=== PATIENT | female | born 1985 | race Caucasian/White ===

== ENCOUNTER 2020-05-30 13:44 | Outpatient (CLI) | payer BC, SELFPAY ==
--- NOTE | 2020-05-30 13:57 | XR_ITS ---
WS: [id number] Exam: XR ankle RT min 3V* [id number] Date/Time of Exam: 05/30/2020 1:57 PM Reason For Exam: CLOSED FX DISLOCATION @ R ANKLE JOINT There is plate and screw fixation along the lateral margin of the lower fibula. No acute fracture is visualized. 2 screws in the plate extend transversely into the lower tibia. The ankle mortise is inta ct. There is mild DJD of the ankle mortise. Normal soft tissues. XR/XR ankle RT min 3V* [id number] IMPRESSION: 1. Internal orthopedic fixation of the lower fibula and tibia. 2. No acute fracture or dislocation.
== END 2020-05-30 13:45 | disposition home or self-care (01) ==
LOC: RADWPI 13:52 → RAD 13:54
PROVIDERS: PCP Family Medicine; Visit Provider Physician Assistant
DX: S82.891A Other fracture of right lower leg, initial encounter for closed fracture (principal); X58.XXXA Exposure to other specified factors, initial encounter
CPT/HCPCS: 73610

== ENCOUNTER → 2021-05-04 14:58 | Outpatient (BNVA) | payer BC, SELFPAY | PROVIDERS: PCP Family Medicine; Referring Provider Nurse Practitioner; Visit Provider Nurse Practitioner Women's Health | DX: N91.5 Oligomenorrhea, unspecified (principal); F32.81 Premenstrual dysphoric disorder | CPT/HCPCS: 84146; 84443; 84702 ==

== ENCOUNTER 2021-08-03 12:47 | Outpatient (CLI) | payer BC, SELFPAY ==
--- NOTE | 2021-08-03 13:00 | US_ITS ---
WS: [id number] TRANSVAGINAL PELVIC ULTRASOUND HISTORY: N91.5 - Oligomenorrhea, unspecified COMPARISON: 05/11/2011 Uterus: 9.4 cm x 5.3 cm x 4.0 cm. Mildly enlarged uterus. Uterus is slightly retroverted. No discrete mass identified. Endometrium: 0.9 cm. Due to retroflexion of the uterus the entire endometrium is not well visualized. The endometrium which is visualized is normal. Neither ovary identified. No adnexal masses. No free fluid. US/US transvaginal [id number] IMPRESSION: 1. Technically difficult pelvic ultrasound due to body habitus and position of the uterus. 2. Retroflexed uterus. 3. Neither ovary identified.
== END 2021-08-03 12:48 | disposition home or self-care (01) ==
PROVIDERS: PCP Family Medicine; Visit Provider Nurse Practitioner Women's Health
DX: N91.5 Oligomenorrhea, unspecified (principal)
CPT/HCPCS: 76830

== ENCOUNTER → 2021-08-10 08:26 | Outpatient (BNVA) | payer BC, SELFPAY | PROVIDERS: PCP Family Medicine; Visit Provider Nurse Practitioner Women's Health | DX: Z01.419 Encounter for gynecological examination (general) (routine) without abnormal findings (principal); E28.2 Polycystic ovarian syndrome | CPT/HCPCS: 87624 ==

== ENCOUNTER → 2021-11-23 15:45 | Outpatient (BNVA) | payer BC, SELFPAY | PROVIDERS: PCP Family Medicine; Visit Provider Nurse Practitioner Psychiatric/Mental Health | DX: Z03.89 Encounter for observation for other suspected diseases and conditions ruled out (principal) | CPT/HCPCS: 80053; 84439; 84481 ==

== ENCOUNTER 2023-10-30 14:33 | Inpatient (IN) | payer SELFPAY ==
--- NOTE | 2023-10-30 14:50 | W.ED.PSYCHS ---
HPI - Psych General: Chief Complaint: Psychiatric Symptoms Stated Complaint: mhe Time Seen by Provider: 10/30/23 14:36 Source: patient and police History of Present Illness: 38-year-old female is here with police with suicidal ideations. She has a history of PTSD and depression and borderline personality disorder. She tells me that she cannot pay her bills and she is severely depressed and has been having thoughts of killing yourself every day. Associated symptoms: Reports depression and suicidal ideation Review of Systems Const: Denies: fever(s), chills, body aches or change in appetite ENMT: Denies: throat pain or dental pain Card: Denies: chest pain Resp: Denies: dyspnea GI: Denies: abdominal pain, nausea, vomiting or diarrhea Musc: Denies: neck pain or back pain Skin/Breast: Denies: rash Neuro: Denies: headache(s) Psych: Reports: depression and suicidal ideation [facility] ED PFSH: Medical History Dizziness and giddiness No pertinent past medical history neghx:htn,dm,thyroid,dvt/pe PCP: Wen PMDD (premenstrual dysphoric disorder) Psychiatric care Surgical History H/O tubal ligation History of section 2003 2008 2013-- tubal liagation at the same time H/O dilation and curettage (~2009) early SAB Family History Mother Diabetes Hypertension Denies family history of Colon cancer Ovarian cancer Heart disease Hypercholesteremia Breast cancer Uterine cancer Thyroid disease Stroke Physical Exam Const: COMMON NORMALS: no acute distress, patient oriented x3 and healthy appearing HENMT: COMMON NORMALS: normocephalic and atraumatic HEAD & SCALP: normocephalic and atraumatic Neck/C-Spine: COMMON NORMALS: full ROM and supple Chest: COMMONS NORMALS: normal inspection of the chest Resp: COMMON NORMALS: normal respiratory effort Cardio: COMMON NORMALS: regular rate, regular rhythm and No murmurs present (Cardio) RATE: regular rate RHYTHM: regular rhythm Extremity: COMMON NORMALS: normal to inspection and full ROM Neuro: COMMON NORMALS: patient oriented x3, moves all extremities and no focal motor deficits Psych: COMMON NORMALS: mental status grossly normal, Normal thought process present and cooperative MOOD & AFFECT: Yes depressed mood THOUGHT PROCESS: Normal thought process present THOUGHT CONTENT: Yes Suicidality present Skin: COMMON NORMALS: no rashes or lesions noted and no wounds GENERAL SKIN EXAM: no rashes or lesions noted Course Vital Signs: Vital signs: Vital Signs Temperature 98.2 F 10/30/23 14:52 Pulse Rate 71 10/30/23 16:07 Blood Pressure 141/84 10/30/23 16:07 Pulse Oximetry 99 10/30/23 16:07 Oxygen Delivery Me thod Room Air 10/30/23 14:52 MDM - Psych Medical Decision Making Patient presents for suicidal ideation patient's medically cleared I spoke to the psychiatrist and will admit on a 96-hour hold Medical Records I reviewed the patient's medical records. Lab Data I reviewed the patient's lab results. 10/30/23 15:16 10/30/23 15:16 Laboratory Results WBC 10.04 10^3/uL (3.29-11.43) 10/30/23 15:16 RBC 4.52 10^6/uL (3.85-5.65) 10/30/23 15:16 Hgb 11.50 g/dL (11.27-16.99) 10/30/23 15:16 Hct 37.7 % (36-47) 10/30/23 15:16 MCV 83.4 fl (85-98) L 10/30/23 15:16 MCH 25.4 pg (27-33) L 10/30/23 15:16 MCHC 30.5 g/dL (30-55) 10/30/23 15:16 RDW 15.0 % (12.1-15.1) 10/30/23 15:16 Plt Count 533 10^3/cmm (157-399) H 10/30/23 15:16 MPV 8.6 fL (7.4-10.4) 10/30/23 15:16 Neut % (Auto) 67.1 % 10/30/23 15:16 Lymph % (Auto) 21.9 % 10/30/23 15:16 [place] % (Auto) 4.9 % 10/30/23 15:16 Eos % (Auto) 4.8 % 10/30/23 15:16 Baso % (Auto) 0.9 % 10/30/23 15:16 Neut # (Auto) 6.74 10^3/uL (1.8-7.7) 10/30/23 15:16 Lymph # (Auto) 2.2 10^3/uL (0.8-4.8) 10/30/23 15:16 [place] # (Auto) 0.5 10^3/uL (0.2-0.9) 10/30/23 15:16 Eos # (Auto) 0.5 10^3/uL (0.0-0.8) 10/30/23 15:16 Baso # (Auto) 0.1 10^3/uL (0.0-0.1) 10/30/23 15:16 Nucleated RBC % (auto) 0 % 10/30/23 15:16 Nucleated RBCs # 0.0 /100WBC 10/30/23 15:16 Sodium 142 mmol/L (136-145) 10/30/23 15:16 Potassium 3.9 mmol/L (3.5-5.1) 10/30/23 15:16 Chloride 109 mmol/L (98-107) H 10/30/23 15:16 Carbon Dioxide 22 mmol/L (22-29) 10/30/23 15:16 Anion Gap 14.9 (5-19) 10/30/23 15:16 BUN 9 mg/dL (6-20) 10/30/23 15:16 Creatinine 0.8 mg/dL (0.5-0.9) 10/30/23 15:16 GFR Calculation 79.4 mL/min (90-130) L 10/30/23 15:16 Glucose 149 mg/dL (65-115) H 10/30/23 15:16 Calculated Osmolality 295 mOsm/kg (285-295) 10/30/23 15:16 Calcium 8.8 mg/dL (8.5-10.5) 10/30/23 15:16 Total Bilirubin 0.3 mg/dL (0.15-1.2) 10/30/23 15:16 AST 10 U/L (0-32) 10/30/23 15:16 ALT 12 U/L (0-33) 10/30/23 15:16 Alkaline Phosphatase 71 U/L (35-105) 10/30/23 15:16 Total Protein 7.8 g/dL (6.6-8.7) 10/30/23 15:16 Albumin 4.5 g/dL (3.5-5.2) 10/30/23 15:16 Globulin 3.3 g/dL (1.3-4.6) 10/30/23 15:16 Salicylates 0.9 mg/dL (3-10) L 10/30/23 15:16 Acetaminophen < 5.0 ug/mL (10-30) L 10/30/23 15:16 Ethyl Alcohol < 10 mg/dL (0-10) 10/30/23 15:16 No radiology studies performed this visit Discharge Plan Discharge Patient Disposition: Admitted As Inpatient Admit Provider: Jaya Rousseau Clinical Impression: Suicidal ideation Condition: Stable Coding Level of Care Code ED Sand Mixer Operator for Kashif Tobar
[2023-10-30 14:52] VITALS: BP 141/84; PULSE 71; TEMP 36.8; O2SAT 99
[2023-10-30 15:48] LABS: Basophils # 0.1 10^3/uL (0.0-0.1); Basophils % 0.9 %; Eosinophils # 0.5 10^3/uL (0.0-0.8); Eosinophils % 4.8 %; Hematocrit 37.7 % (36-47); Lymphocytes # 2.2 10^3/uL (0.8-4.8); Lymphocytes % 21.9 %; Mean Corpuscular HGB Conc 30.5 g/dL (30-55); Mean Corpuscular Hemoglobin 25.4 pg (27-33); Mean Corpuscular Volume 83.4 fl (85-98); Mean Platelet Volume 8.6 fL (7.4-10.4); Monocytes # 0.5 10^3/uL (0.2-0.9); Monocytes % 4.9 %; Neutrophils # 6.74 10^3/uL (1.8-7.7); Neutrophils % 67.1 %; Nucleated Red Blood Cells % 0 %; Platelet Count 533 10^3/cmm (157-399); Red Blood Count 4.52 10^6/uL (3.85-5.65); White Blood Count 10.04 10^3/uL (3.29-11.43)
[2023-10-30 16:07] VITALS: BP 141/84; PULSE 71; O2SAT 99
[2023-10-30 16:07] LABS: Alanine Aminotransferase 12 U/L (0-33); Albumin Level 4.5 g/dL (3.5-5.2); Alkaline Phosphatase 71 U/L (35-105); Anion Gap 14.9 (5-19); Aspartate Amino Transferase 10 U/L (0-32); Blood Urea Nitrogen 9 mg/dL (6-20); Calcium 8.8 mg/dL (8.5-10.5); Carbon Dioxide 22 mmol/L (22-29); Chloride 109 mmol/L (98-107); Globulin 3.3 g/dL (1.3-4.6); Glomerular Filtration Rate 79.4 mL/min (90-130); Glucose 149 mg/dL (65-115); Osmolality Calculated 295 mOsm/kg (285-295); Potassium 3.9 mmol/L (3.5-5.1); Salicylate 0.9 mg/dL (3-10); Sodium 142 mmol/L (136-145); Total Bilirubin 0.3 mg/dL (0.15-1.2); Total Protein 7.8 g/dL (6.6-8.7)
[2023-10-30 16:09] LABS: Acetaminophen < 5.0 ug/mL (10-30); Alcohol Level < 10 mg/dL (0-10)
[2023-10-30 16:32] VITALS: BP 148/56; PULSE 105; RESP 18; TEMP 36.6; O2SAT 93
--- NOTE | 2023-10-30 19:21 | PC.NURSE ---
Patient tearful and uncooperative upon admission. Patient initially refused to sign paperwork and to dress out. Security called. Patient states that because she is here, that she is going to lose everything.
--- NOTE | 2023-10-30 19:22 | PC.NURSE ---
96 hr rights reviewed with patient @1515 with assistance of [facility] staff submarine warfare officer Yung. Patient copy left @bedside with patient. Patient unhappy with hold. Threw glasses @[employer]ion Developer. But verbalized understatement of 96 hr hold process.
[2023-10-30 20:23] VITALS: BP 94/57; PULSE 82; RESP 14; TEMP 36.9; O2SAT 98
[2023-10-31 06:27] VITALS: BP 110/62; PULSE 58; RESP 14; TEMP 36.6; O2SAT 100
--- NOTE | 2023-10-31 08:30 | PC.NURSE ---
IN BED RESTING BUT OBSERVED STARRING OFF BLANKLY WITHOUT BLINKING FOR SEVERAL MINUTES. RN ASKED PT SEVERAL TIMES IF HER NAME WAS CATHY RIBEIRO AND PT WOULD NOT ANSWER, RN ASKED AGAIN WHEN PT STATES I DON'T HAVE A NAME ANYMORE. PT WAS ASKED IF SHE WAS HAVING ANY PAIN AND PT CONTINUED TO STARE OFF AND DECLINED TO ANSWER. RN INFORMED PT THAT WHEN SHE IS READY TO COMPLETE HER ASSESSMENT THIS MORNING SHE CAN COME AND GET ME OR LET STAFF KNOW. PT CONTINUED TO GLARE AT RN WITHOUT SAYING ANYTHING. SUPPORT WAS VOICED. NO S/S OF PAIN WAS OBSERVED.
[2023-10-31 09:18] LABS: HCG Qualitative Urine. Negative (Negative)
[2023-10-31 09:23] LABS: THC Screen Urine Positive (Negative)
[2023-10-31 09:24] LABS: Amphetamines Screen Urine Negative (Negative); Barbiturates Screen Urine Negative (Negative); Benzodiazepines Screen Urine Negative (Negative); Cocaine Screen Urine Negative (Negative); Opiate Screen Urine Negative (Negative); PCP Screen Urine Negative (Negative)
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
[2023-10-31 13:52] VITALS: BP 117/69; PULSE 69; RESP 18; TEMP 36.8; O2SAT 98
[2023-10-31 20:30] VITALS: BP 113/77; PULSE 63; RESP 17; TEMP 36.8; O2SAT 98
[2023-10-31] MEDS: trazodone 50 mg Tablet PO ×2 (21:05→23:59)
[2023-11-01 06:00] VITALS: BP 98/65; PULSE 65; RESP 14; TEMP 36.5; O2SAT 98
[2023-11-01 14:00] VITALS: BP 113/74; PULSE 88; RESP 18; TEMP 36.8; O2SAT 99
--- NOTE | 2023-11-01 16:47 | W.PM.NPUPNS ---
Subjective NPU Subjective: Patient presented today reporting that she is feeling all right. She endorsed that she was working with the social work team for possibilities for outpatient resources. She reports that she did speak to her job but she is still unclear if she is going to be able to keep it but reports that it was only paying 12.50 an hour or something like that. She reported feeling a little more optimistic about possibly getting help while she is here. Mental Status Exam MSE Comments: This is an overweight white female in hospital scrubs with limited grooming and eye contact. No abnormal movements except for psychomotor retardation. Mostly cooperative with exam in moderate distress. Speech was decreased rate and volume. Mood described as overwhelmed, affect congruent and subdued. Thought process mostly organized. Thought content: Patient denied current suicidal or homicidal ideation, there were no delusions reported or noted, she denied auditory or visual hallucinations. The patient reports feeling depressed, with symptoms including low mood, feelings of helplessness, hopelessness, sleep difficulty, appetite changes, and low energy. The patient also reports having suicidal ideations but denies any current thoughts of self-harm or suicide. The patient denies any current hallucinations or delusions. She plans to seek therapy to process her mother's . Attention and concentration were mostly intact and memory appeared mostly reliable but none were formally tested. She is alert and oriented x 3. Insight, judgment appear fair and impulse control impaired. Vitals/I&O/Wt Last Vital Signs Temp 98.3 F 11/01/23 14:00 Pulse 88 11/01/23 14:00 Resp 18 11/01/23 14:00 BP 113/74 11/01/23 14:00 Pulse Ox 99 11/01/23 14:00 O2 Del Method Room Air 11/01/23 06:00 Data NPU 10/30/23 15:16 10/30/23 15:16 A&P Assessment and plan (1) Borderline personality disorder: (2) Generalized anxiety disorder: (3) Suicidal ideation: (4) PTSD (post-traumatic stress disorder): (5) Major depressive disorder, recurrent: (6) Dizziness and giddiness: (7) PMDD (premenstrual dysphoric disorder): (8) PCOS (polycystic ovarian syndrome): Plan This is a 38-year-old white female with a long history of mental health issues was mostly outpatient [facility]. She presents currently experiencing significant distress due to financial difficulties and the potential loss of their home. The patient has a history of mental health issues, including depression, anxiety, PTSD, and borderline personality disorder. The patient is currently off medication and has not been receiving mental health services since losing their job and Medicaid coverage. 1. Encourage individual, group and milieu therapy. 2. Evaluate for safety against the backdrop of 96-hour hold 3. Continue q-15 minute checks for safety.? 4.?Consider appropriate medication 5.?Will attempt to gather collateral information. Work with social work team to try to assist her and connect her to community resources to help with financial situation. Involuntary Hold Information 96 Hour Hold: 96 Hour Involuntary Admission: No Attestations NPU Medical Necessity Statement*: Inpatient hospitalization is medically necessary and the clinically appropriate intervention at this time. We will monitor and adjust medications as indicated. Her likely length of stay 3-5 days. Coding Level of Care Code Acute Code for [facility] Fwd Diagnoses Borderline personality disorder F60.3 Generalized anxiety disorder F41.1 Suicidal ideation R45.851 PTSD (post-traumatic stress disorder) F43.10 Major depressive disorder, recurrent F33.9 Dizziness and giddiness R42 PMDD (premenstrual dysphoric disorder) F32.81 PCOS (polycystic ovarian syndrome) E28.2
[2023-11-01] MEDS: trazodone 50 mg Tablet PO (19:40)
[2023-11-01 21:10] VITALS: BP 107/71; PULSE 86; RESP 18; TEMP 36.6; O2SAT 98
[2023-11-02] MEDS: trazodone 50 mg Tablet PO ×2 (02:29→21:49)
[2023-11-02 06:00] VITALS: RESP 16
--- NOTE | 2023-11-02 07:38 | W.PM.NPUPNS ---
Subjective NPU Subjective: Patient presented today reporting that she is happy that she filled out paperwork and that there may be opportunities that will come from this hospitalization that would not have occurred if she did not come here. She identified that she has had some communication with her children. Otherwise she denied any major concerns and we discussed Dr. Tripp returning tomorrow and that we imagined the likelihood of discharge on Saturday hopefully with some helpful referrals to assist her with her functioning. She continued to deny any specific desire or need for medication. Mental Status Exam MSE Comments: This is an overweight white female in hospital scrubs with limited grooming and eye contact. No abnormal movements except for psychomotor retardation. Mostly cooperative with exam in moderate distress. Speech was decreased rate and volume. Mood described as overwhelmed, affect congruent and subdued. Thought process mostly organized. Thought content: Patient denied current suicidal or homicidal ideation, there were no delusions reported or noted, she denied auditory or visual hallucinations. The patient reports feeling depressed, with symptoms including low mood, feelings of helplessness, hopelessness, sleep difficulty, appetite changes, and low energy. The patient also reports having suicidal ideations but denies any current thoughts of self-harm or suicide. The patient denies any current hallucinations or delusions. She plans to seek therapy to process her mother's . Attention and concentration were mostly intact and memory appeared mostly reliable but none were formally tested. She is alert and oriented x 3. Insight, judgment appear fair and impulse control impaired. Vitals/I&O/Wt Last Vital Signs Temp 98 F 11/01/23 21:10 Pulse 86 11/01/23 21:10 Resp 16 11/02/23 06:00 BP 107/71 11/01/23 21:10 Pulse Ox 98 11/01/23 21:10 O2 Del Method Room Air 11/01/23 21:10 Data NPU 10/30/23 15:16 10/30/23 15:16 A&P Assessment and plan (1) Borderline personality disorder: (2) Generalized anxiety disorder: (3) Suicidal ideation: (4) PTSD (post-traumatic stress disorder): (5) Major depressive disorder, recurrent: (6) Dizziness and giddiness: (7) PMDD (premenstrual dysphoric disorder): (8) PCOS (polycystic ovarian syndrome): Plan This is a 38-year-old white female with a long history of mental health issues was mostly outpatient psychiatric services in the [facility]. She presents currently experiencing significant distress due to financial difficulties and the potential loss of their home. The patient has a history of mental health issues, including depression, anxiety, PTSD, and borderline personality disorder. The patient is currently off medication and has not been receiving mental health services since losing their job and Medicaid coverage. 1. Encourage individual, group and milieu therapy. 2. Evaluate for safety against the backdrop of 96-hour hold 3. Continue q-15 minute checks for safety.? 4.?Consider appropriate medication 5.?Will attempt to gather collateral information. Work with social work team to try to assist her and connect her to community resources to help with financial situation. Involuntary Hold Information 96 Hour Hold: 96 Hour Involuntary Admission: No Attestations NPU Medical Necessity Statement*: Inpatient hospitalization is medically necessary and the clinically appropriate intervention at this time. We will monitor and adjust medications as indicated. Her likely length of stay 2-4 days. Coding Level of Care Code Acute Code for [facility] Fwd Diagnoses Borderline personality disorder F60.3 Generalized anxiety disorder F41.1 Suicidal ideation R45.851 PTSD (post-traumatic stress disorder) F43.10 Major depressive disorder, recurrent F33.9 Dizziness and giddiness R42 PMDD (premenstrual dysphoric disorder) F32.81 PCOS (polycystic ovarian syndrome) E28.2
--- NOTE | 2023-11-02 09:14 | PC.NURSE ---
IN BED RESTING AROUSES TO VOICE. PT DENIES PAIN BUT STATES I HAVE A SMALL HEMORRHOID. NEW ORDERS RECEIVED FOR PREPARATION H OINTMENT TOPICAL QID PRN FOR HEMORRHOIDS. DENIES SI/HI AND AVH AT THIS TIME. RATES ANXIETY 0/10 AND DEPRESSION 1/10. PT IS OBSERVED HAVING A FLAT AFFECT AT THIS TIME AND ISOLATES TO ROOM AND IS NOTED TO BE WITHDRAWN. REPORTS SHE DID NOT SLEEP WELL LAST NIGHT DUE TO ANOTHER PT ACTING OUT LAST NIGHT. ALL QUESTIONS ANSWERED AND SUPPORT VOICED.
[2023-11-02 14:00] VITALS: BP 110/66; PULSE 65; RESP 20; TEMP 36.7; O2SAT 100
[2023-11-02 20:27] VITALS: BP 107/62; PULSE 114; RESP 18; TEMP 37.2; O2SAT 97
[2023-11-03 06:00] VITALS: BP 97/64; PULSE 60; RESP 16; O2SAT 98
--- NOTE | 2023-11-03 07:48 | PC.NURSE ---
Patient denies avh and si/hi. Patient withdrawn this morning and mumbling all of her answers, very short answers as if she were agitated that she was being asked questions. Denies any pain or issues with bowel movements or urinating. She does say she has a hemorrhoid currently, but that it is not bothering her at this time.
[2023-11-03 14:00] VITALS: BP 102/66; PULSE 81; RESP 20; TEMP 36.6; O2SAT 98
--- NOTE | 2023-11-03 17:02 | P.NPUPN_ITS ---
Subjective NPU 2 Subjective: Patient is a 38-year-old female with borderline personality disorder, complex PTSD, major depressive disorder admitted involuntarily for suicidal ideation. The patient had denied any suicidal thoughts at this time. She had reported that the gas operations superintendent had been stupid and had demanded to know why she had been hospitalized asking to be able to read the affidavit. She had reported having simply had the desire to need to speak with a therapist and reported that she had called them frequently and requested that she be able to go home soon as she had a new job that she was afraid that she was going to lose. She had reported no desire to consider medications but stated that she was willing to restart weekly therapy if possible. Mental Status Exam 2 MSE Comments: This is an overweight white female in hospital scrubs with limited grooming and eye contact. No abnormal movements except for psychomotor retardation. Mostly cooperative with exam in moderate distress. Speech was normal in rate rhythm and prosody. Mood described as frustrated. Her affect was mood congruent and restricted. Thought process was linear, logical and goal directed. Thought content: Patient denied current suicidal or homicidal ideation, there were no delusions reported or noted, she denied auditory or visual hallucinations.The patient also reports having suicidal ideation with no plan or intent. She denies any homicidal ideation. There was no evidence of delusional thinking. Attention and concentration were mostly intact and memory appeared mostly reliable but none were formally tested. She is alert and oriented x 3. Insight was limited. Her judgment appeared poor and impulse control was impaired. Vitals/I&O/Wt Last Vital Signs Temp 98 F 11/03/23 14:00 Pulse 81 11/03/23 14:00 Resp 20 H 11/03/23 14:00 BP 102/66 11/03/23 14:00 Pulse Ox 98 11/03/23 14:00 O2 Del Method Room Air 11/03/23 06:00 Weight last 48 hrs Weight 64.467 kg Data NPU 10/30/23 15:16 10/30/23 15:16 A&P Assessment and plan (1) Borderline personality disorder: (2) Generalized anxiety disorder: (3) Suicidal ideation: (4) PTSD (post-traumatic stress disorder): (5) Major depressive disorder, recurrent: (6) Dizziness and giddiness: (7) PMDD (premenstrual dysphoric disorder): (8) PCOS (polycystic ovarian syndrome): Plan This is a 38-year-old white female with a long history of mental health issues was mostly outpatient psychiatric services in the [facility] system. She presents currently experiencing significant distress due to financial difficulties and the potential loss of their home. The patient has a history of mental health issues, including depression, anxiety, PTSD, and borderline personality disorder. The patient is currently off medication and has not been receiving mental health services since losing their job and Medicaid coverage. 1. Encourage individual, group and milieu therapy. 2. Evaluate for safety against the backdrop of 96-hour hold 3. Continue q-15 minute checks for safety.? 4.?Consider appropriate medication 5.?Will attempt to gather collateral information. Work with social work team to try to assist her and connect her to community resources to help with financial situation. Involuntary Hold Information 2 96 Hour Hold: 96 Hour Involuntary Admission: No Attestations NPU 2 Medical Necessity Statement*: Inpatient hospitalization is medically necessary and the clinically appropriate intervention at this time. We will monitor and adjust medications as indicated. Her likely length of stay 1-3 days. Coding Level of Care Code Acute Code for g Fwd Diagnoses Borderline personality disorder F60.3 Generalized anxiety disorder F41.1 Suicidal ideation R45.851 PTSD (post-traumatic stress disorder) F43.10 Major depressive disorder, recurrent F33.9 Dizziness and giddiness R42 PMDD (premenstrual dysphoric disorder) F32.81 PCOS (polycystic ovarian syndrome) E28.2
[2023-11-03 21:22] VITALS: BP 107/67; PULSE 98; RESP 18; TEMP 36.7; O2SAT 99
[2023-11-03] MEDS: trazodone 50 mg Tablet PO (21:58)
[2023-11-04 06:00] VITALS: BP 96/51; PULSE 70; RESP 16; O2SAT 99
--- NOTE | 2023-11-04 08:35 | PC.NURSE ---
PT CURRENTLY DENIES SI/HI/AH/VH. PT CURRENTLY DENIES DEPRESSION. PT ENDORSES ANXIETY RATING IT A 3/10 ON A 0-10 SCALE WHERE 0 IS NONE AND 10 IS THE WORST POSSIBLE. PT CURRENTLY REFUSING PRN MEDICATIONS FOR ANXIETY. PT AFFECT IS FLAT AND BLAND. PT STILL HAS CONCERNS ABOUT NOT BEING ABLE TO PAY HER BILLS. THIS NURSE STATED THAT SHE WOULD SPEAK WITH PHYSICIAN AND FINANCIAL PLANNING ASSISTANT ABOUT PT CONCERNS. PT CURRENT NEEDS ARE MET AT THIS TIME.
[2023-11-04] MEDS: phenyleph-mineral oil-petrolat Oint 28 gm 1 APPLIC TOPICAL (08:54)
[2023-11-04 13:34] VITALS: BP 96/51; PULSE 70; RESP 16; O2SAT 99
[2023-11-04 14:00] VITALS: BP 103/67; PULSE 81; RESP 16; TEMP 36.8; O2SAT 97
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
== END 2023-11-04 15:59 | disposition home or self-care (01) | DRG 885 ==
LOC: ER 15:47 → NP 15:48
PROVIDERS: Admitting Provider Psychiatry & Neurology Psychiatry; Emergency Provider Emergency Medicine; PCP Family Medicine; Visit Provider Psychiatry & Neurology Psychiatry
DX: F33.9 Major depressive disorder, recurrent, unspecified (principal); R45.851 Suicidal ideations; F43.12 Post-traumatic stress disorder, chronic; F60.3 Borderline personality disorder; F41.1 Generalized anxiety disorder; Z91.52 Personal history of nonsuicidal self-harm; Z62.810 Personal history of physical and sexual abuse in childhood; Z56.0 Unemployment, unspecified; Z59.86 Financial insecurity
CPT/HCPCS: 36415; 80053; 80306; 80307; 81025; 85025; 97150; 97165; 99285